=== PATIENT | female | born 1945 | race Caucasian/White ===

== ENCOUNTER 2017-02-01 21:42 | Observation (INO) | payer MEDICARE ==
[~2017-02-01] VITALS: Ht 162.6 cm; Wt 99.5 kg
[~2017-02-01 21:42] MED LIST: ACET1TAB42 PO; AZIT250T4 PO; BENZ100C8 PO; BISO10TA PO; CALC500O PO; CHOL200047 PO; CYAN500 PO; HYDR-4003 PO; HYDR10TA12 PO; HYDR25TA4 PO; Ketoconazole TOP; LEVO100T6 PO; LEVO500T16 PO; MTH4T PO; OMEP20CA11 PO; ONDA-54 PO; POTA20TA16 PO
[2017-02-01 22:13] VITALS: BP 116/60; PULSE 88; RESP 24; O2SAT 95
--- NOTE | 2017-02-01 22:28 | ED.REPORT ---
HPI-Neurologic Deficit Date of Service Feb 01, 2017 ED Provider: Ernesto Gautam DO Pt is a 71 y.o. female with a hx of metastatic breast cancer on chemotherapy, and CHF who presents to the ED via EMS with altered mental status onset 1 hour prior to arrival lasting approximately 15 minutes. Per granddaughter she found pt not moving with her eyes closed speaking "gibberish". The pt does not remember this incident. Pt's other family note that the pt seemed more fatigued than normal today. Per EMS upon their arrival the pt appeared pale and confused , they administered 500 NS en route. She received chemotherapy earlier today. Nursing Notes Stated Complaint: DECREASED LOC Chief Complaint: General Complaint Nursing Notes Reviewed: Yes Allergies: Coded Allergies: furosemide (Verified Allergy, Severe, DRAMATIC HYPOTENSION - RESULTING IN ICU ADMISSION, 02/01/17) hypotension which was severe enough that it caused an admission to ICU shrimp (Verified Allergy, Unknown, Hives, 02/07/16) enoxaparin (Verified Adverse Reaction, Severe, BLEED, 02/07/16) warfarin (Verified Adverse Reaction, Severe, BLEED, 02/07/16) Scheduled Bisoprolol Fumarate (Bisoprolol Fumarate) 10 Mg Tablet 10 MG PO QPM Calcium Carbonate (Tums) 500 Mg Tab.chew 1,000 MG PO BIDWM Cholecalciferol (Vitamin D3) (Vitamin D3) 2,000 Unit Capsule 4,000 UNIT PO DAILY Hydrochlorothiazide (Hydrochlorothiazide) 50 Mg Tablet 50 MG PO QAM Hydrocortisone (Hydrocortisone) 10 Mg Tablet 10 MG PO BID Levothyroxine (Levothyroxine) 100 Mcg Tablet 100 MCG PO QAM Omeprazole (Omeprazole) 20 Mg Capsule.dr 20 MG PO QAM Potassium Chloride (Potassium Chloride) 10 Meq Tab.er.prt 20 MEQ PO DAILY TAKE WITH FOOD Scheduled PRN Acetaminophen (Acetaminophen) 325 Mg Tablet 650 MG PO Q4H PRN PRN For Fever Hydrocodone-Acetaminophen 5-325 mg (Hydrocodone-Acetaminophen 5-325 mg) 1 Each Tablet 0.5-1 TABLET PO Q4H PRN PRN For Cough General Time Seen by Provider: 22:28 Chief Complaint Mental status change Hx Obtained From: Patient, Other family... (Granddaughter) Arrived By: Ambulance Sudden in Onset?: Yes Onset Occurred: 1 - 4 hours ago Symptom Duration: 1 - 15 minutes Severity: Current: No pain currently Severity: Maximum: No pain Risk Factors NIH Stroke Scale Level of Consciousness: Alert and responsive (0) Ask Month & Age: Both questions right (0) Open/Close Eyes/Hand Mortuary Operations Manager: Performs both tasks (0) Horizontal EO Movements: None (0) Visual Ramsey: No visual loss (0) Facial Palsy: Normal symmetry (0) Right Arm Motor Drift (10s): No drift 10 sec (0) Left Arm Motor Drift (10s): No drift 10 sec (0) Right Leg Motor Drift (5s): No drift 5 sec (0) Left Leg Motor Drift (5s): No drift 5 sec (0) Limb Ataxia FNF/Heel-Espinoza: No ataxia (0) Sensation (Arms/Legs/Face): No sensory loss (0) Language Aphasia: No aphasia, normal (0) Dysarthria: No dysarthria, normal (0) Extinction/Inattention: No exctinct/inattent (0) NIHSS Score: 0 Time NIHSS Performed: 22:35 Date NIHSS Performed: Feb 01, 2017 Past Medical History Past Medical History Metastatic breast cancer on chemotherapy, reportedly stable (in clinical remission since January 2015) CHF secondary to her Herceptin/chemo therapy History of upper extremity DVT on November 2013, initially treated with anticoagulation resulting in a large intramuscular hematoma coring prolonged hospital admission Hypercholesterolemia Hypothyroidism Pneumonia Reports: Cancer, Congestive heart failure, Hypertension Reports: Atrial fibrillation Past Surgical History Bilateral hip replacements Right knee arthroplasty D and C Port placement Family History Noncontributory Smoking History Never Smoker Social History Drug Use: Denies drug use Other Social History: Good social support, Ambulatory Status Independent Review of Systems Aphasia Constitutional: Reports: Fatigue, Denies: Chills, Fever GI: Denies: Diarrhea, Nausea, Vomiting Neurologic: Reports: Change LOC, Confusion Psychiatric: Reports: Change mental status Complete sys rev & neg: except as marked. Physical Exam Initial Vital Signs Vital Signs (First) Date Time Temp Pulse Resp B/P Pulse Ox O2 Delivery O2 Flow Rate FiO2 02/01/17 22:13 36.9 88 24 116/60 95 Room Air Initial VS: Reviewed Abdomen / GI: No distention Extremities: Vascular intact, Neuro intact Skin: Warm, Dry, No cyanosis Psychiatric: Mood/affect normal, Behavior normal, Normal thought content General/Constitutional: Awake, Alert, No acute distress, Well appearing, Well developed, Well hydrated, Well nourished, Cooperative, Not toxic appearing Head / Eyes: Atraumatic, Normocephalic, PERRL, EOMI Respiratory / Chest: Atraumatic, Breath sounds NL, Breath sounds = bilat, No respiratory distress Cardiovascular: Heart rate NL, Peripheral circulation NL Heart Rate / Rhythm: Positive: Irreg irregular rhythm Neurologic: Oriented X3, Speech NL, No motor deficits, No sensory deficits, CN II - XII intact Interpretation & Diagnostics Lab Results Interpretation Result Diagram: 02/02/17 0510 02/02/17 0510 Test 02/01/17 22:15 02/01/17 22:30 02/01/17 22:31 Hold Purple Top Tube Received (Received) Hold Blue Top Tube Received (Received) Hold Red Top Tube Received (Received) Hold [place] Top Tube Received (Received) Urine Color Yellow (YELLOW) Urine Appearance Clear (CLEAR,HAZY) Urine pH 6.5 (5.0-8.0) Urine Specific [place] 1.010 (1.003-1.035) Urine Protein Negativemg/dL (NEG,TRACE) Urine Glucose (UA) Negativemg/dL (NEGATIVE) Urine Ketones Tracemg/dL (NEGATIVE) Urine Occult Blood Negative (NEGATIVE) Urine Nitrite Negative (NEGATIVE) Urine Bilirubin Small (NEGATIVE) Urine Ictotest Positive (Negative) Urine Urobilinogen Normalmg/dL (NORMAL) Urine Leukocyte Esterase Small (NEGATIVE) Urine RBC 3-10/hpf (0-2) Urine WBC 11-50/hpf (0-5) Urine Epithelial Cells Occasional/hpf (NONE-MOD) Urine Crystals None seen (NONE SEEN) Urine Bacteria None/hpf (NONE-FEW) Urine Hyaline Casts Occasional/lpf (NONE) Urine Granular Casts None seen (NONE SEEN) Urine Waxy Casts None seen (NONE SEEN) Urine Red Blood Cell Casts None seen (NONE SEEN) Urine White Blood Cell Casts None seen (NONE SEEN) Urine Mucus Present (None Seen) Urine Trichomonas None seen (NONE SEEN) Urine Yeast None (NONE SEEN) Urine Culture Reflexed Indicated Prothrombin Time 10.8sec (8.1-12.5) Prothromb Time International Ratio 1.01ratio Troponin T 0.010ug/L (0.0-0.011) Hold Zhang Top Tube Received (Received) ECG Interpretation Time: 22:43 Interpreted by: ED physician Normal ECG Interpretation: Normal rate (85) Rhythm / Conduction: Atrial fibrillation CT Head Interpretation CONCLUSION: Chronic ischemic changes. Bilateral subdural hygromas. Radiologist: Jong Chen MD Re-Eval/Medical Decision Med Decision/Clinical Course 8-year-old female A. fib and no anticoagulation and had a brief spell of expressive aphasia. Symptoms consistent with a TIA. NIH stroke score was [address] scan did not show anything acute. She will be admitted for further stroke workup. Will begin aspirin therapy. Source of Hx: Old records Re-Evaluation/Progress : Time of Eval: 22:39 Re-Evaluation/Progress Note: Physical exam and NIH performed. Discussed plan for admit, pt and family understand and agree with plan. Consultation : Referral / Consult Name: Johnnie Francois MD Consulted With: Hospitalist Call Returned at: 23:54 Pattern Clerk: Will see patient, Agrees with eval, Agrees with plan, Accepts admit Note: Discussed pt condition, accepts admit Counseled Regarding: Diagnosis, Lab results, Need for follow-up, When/why to return to ED Discharge & Departure Shift Change Sign-Out Response to Therapy: Improved Impression: Primary Impression: TIA (transient ischemic attack) Transient cerebral ischemia type: unspecified Qualified Code: G45.9 - Transient cerebral ischemic attack, unspecified Disposition: ADMITTED TO HOSPITAL Discharge Condition All VS Reviewed: Yes Condition: Improved Referrals: Caleb Irby MD (PCP) Homero Attestation Portions of this note were transcribed by Ariel Joshua. I, Dr. Gautam personally performed the history, physical exam and medical decision-making; I reviewed and confirmed the accuracy of the information in the transcribed note. Signed by : Homero Godinez, 02/01/17 and [id number]. copies to: Caleb Irby MD, Todd P DO Feb 01, 2017 22:28 ARIEL JOSHUA Feb 01, 2017 22:39 3.2mEq/L (3.5-5.2) Chloride Level 96mEq/L (97-108) Carbon Dioxide Level 22mmol/L (18-29) Blood Urea Nitrogen 17mg/dL (8-27) Creatinine 0.98mg/dL (0.57-1.00) Estimat Glomerular Filtration Rate 80mL/min (>59) Glucose Level 97mg/dL (60-99) Calcium Level 8.9mg/dL (8.5-10.1) Magnesium Level 1.5mg/dL (1.6-2.6) Total Bilirubin 2.9mg/dL (0.0-1.2) Aspartate Amino Transf (AST/SGOT) 119U/L (0-50) Alanine Aminotransferase (ALT/SGPT) 73U/L (0-32) Alkaline Phosphatase 123U/L (25-165) Troponin T 0.010ug/L (0.0-0.011) Total Protein 7.9g/dL (6.4-8.4) Albumin 2.8g/dL (3.4-5.0) Hold Zhang Top Tube Received (Received) ECG Interpretation Time: 22:43 Interpreted by: ED physician Normal ECG Interpretation: Normal rate (85) Rhythm / Conduction: Atrial fibrillation CT Head Interpretation CONCLUSION: Chronic ischemic changes. Bilateral subdural hygromas. Radiologist: Jong Chen MD Re-Eval/Medical Decision Source of Hx: Old records Re-Evaluation/Progress : Time of Eval: 22:39 Re-Evaluation/Progress Note: Physical exam and NIH performed. Discussed plan for admit, pt and family understand and agree with plan. Consultation : Referral / Consult Name: Johnnie Francois MD Consulted With: Hospitalist Call Returned at: 23:54 Pattern Clerk: Will see patient, Agrees with eval, Agrees with plan, Accepts admit Note: Discussed pt condition, accepts admit Counseled Regarding: Diagnosis, Lab results, Need for follow-up, When/why to return to ED Discharge & Departure Impression: Primary Impression: TIA (transient ischemic attack) Disposition: ADMITTED TO HOSPITAL Discharge Condition All VS Reviewed: Yes Condition: Improved Referrals: Caleb Irby MD (PCP) Homero Attestation Portions of this note were transcribed by Ariel Joshua. I, Dr. Gautam personally performed the history, physical exam and medical decision-making; I reviewed and confirmed the accuracy of the information in the transcribed note. Signed by : Homero Godinez, 02/01/17 and [id number]. copies to: Caleb Irby MD, Todd P DO Feb 01, 2017 22:28 ARIEL JOSHUA Feb 01, 2017 22:39
[2017-02-01 22:50] LABS: BASOPHILS % (AUTO) 0.4 % (0-3); EOSINOPHILS % (AUTO) 3.3 % (0-5); MONOCYTES % (AUTO) 9.8 % (4-12); Mean Corpuscular Hemoglobin 31.4 pg (27.0-35.0); Mean Corpuscular Volume 97.2 fL (81-100); NEUTROPHILS % (AUTO) 79.4 % (40-74)
[2017-02-01 23:05] LABS: APPEARANCE,URINE CLEAR (CLEAR,HAZY); COLOR,URINE YELLOW (YELLOW); OCCULT BLOOD,URINE NEGATIVE (NEGATIVE); PH,URINE 6.5 (5.0-8.0); UROBILINOGEN,URINE NORMAL (NORMAL)
[2017-02-01 23:06] LABS: ICTOTEST,URINE POSITIVE (Negative)
[2017-02-01 23:07] LABS: INR 1.01 ratio
[2017-02-01 23:11] LABS: Platelet Count 76 bil/L (150-400); TROPONIN T 0.01 ug/L (0.0-0.011)
[2017-02-01 23:22] LABS: Magnesium 1.5 mg/dL (1.6-2.6)
[2017-02-01 23:30] VITALS: BP 101/59; PULSE 72; RESP 14; O2SAT 97
[2017-02-01] MEDS ORDERED: HYDR50TA3 PO (23:50)
[2017-02-01] MEDS ORDERED: POTA10TA38 PO (23:50)
[2017-02-01] MEDS ORDERED: ACET325T51 PO (23:51)
[2017-02-02] VITALS (9 sets, daily range): BP systolic 101–131; BP diastolic 62–84; PULSE 68–97; RESP 14–20; O2SAT 92–98
[2017-02-02] MEDS ORDERED: Ondansetron 2 mg/mL 2 mL Inj IV PRN (01:05)
[2017-02-02] MEDS ORDERED: Alum-Mag Hydrox-Simeth 30 mL Suspension PO PRN (01:05)
[2017-02-02] MEDS ORDERED: HYDROcodone-APAP 5-325 mg Tablet PO PRN (01:05)
[2017-02-02] MEDS ORDERED: Polyethylene Glycol (PEG) 17 Gm Powder PO PRN (01:05)
--- NOTE | 2017-02-02 03:49 | NUR ---
[facility] Admitted pt from ED for TIA to [facility] room 3001. Pt is alert and oriented x 4. No slurring of speech, no facial droop, equal director of intelligence, and COBB. Left arm cast noted limited ROM. CVA booklet provided, swallow screen done. Currently on Pureed Honey thick diet until speech evaluation. Denies chest pain, sob, n/v or abd discomfort. Will continue to monitor.
[2017-02-02] MEDS ORDERED: Magnesium Sulf 2 Gm/50mL Water 2 GM in IV Premix 1 EACH IV ONE (04:50)
[2017-02-02] MEDS ORDERED: 0.9% Sodium Chloride 1,000 ML IV SCH (04:50)
[2017-02-02] MEDS ORDERED: Potassium Chloride Inj 20 MEQ in Dextrose 5% 250 ML IV ONE ×2 (04:50→07:30)
--- NOTE | 2017-02-02 04:58 | PCM.HPMED ---
Subjective Date of Service Feb 02, 2017 Primary Provider: Admitting Physician: Johnnie Francois MD Primary Care Physician: Caleb Irby MD Attending Physician: Johnnie Francois MD Admit Status: From the Emergency Department, Non-Telemetry Chief Complaint: Slurred speech and decreased level of consciousness History of Present Illness: Ms. Sana Phillips is a 71-year-old female with history of metastatic breast cancer on chemotherapy, chronic Afib, recurrent pneumonia, hypothyroidism, and sleep apnea presented to the ED with altered mental status onset 1 hour prior to arrival. The patient's grand-daughter noted that the patient was not opening her eyes and had some slurred speech. She seemed sleepier than usual and did not make any sense. No facial droops noted. The incident lasted about 15 minutes before it spontaneously resolved. Per EMS report, upon their arrival the patient appeared pale and confused, and was administered 500 NS en route. By the time the patient arrived to the ED, she is back to her baseline. However , she does not recall anything about the incident nor remember talking to her grand-daughter. The last thing that she remembered was sitting in front of the TV 2 hours prior. The patient admits to generalized fatigue and dizziness, but attributes these symptoms to the chemotherapy that she received today. She reports that she generally feels weak after the chemo. Otherwise, she denies any headache, CP, SOB, weakness, numbness, tingling, fever, or chills. She uses 4L of O2 at home since 08/23 after the pneumonia, but has not noticed any increased SOB or cough. This is the first time she experienced such symptoms. In the ED, labs significant for thrombocytopenia Plt 76, Na 132, K 3.2, and Mg 1.5.UA showed moderate WBC and patient received a dose of Keflex in the ED. CT head revealed chronic ischemic changes and bilateral subdural hygromas. No acute changes noted. Patient was admitted for TIA and need stroke workup in the morning. Review of Systems: A comprehensive review of systems was conducted with the patient and found to be negative except as above in the History of Present Illness. Allergies Coded Allergies: furosemide (Verified Allergy, Severe, DRAMATIC HYPOTENSION - RESULTING IN ICU ADMISSION, 02/01/17) hypotension which was severe enough that it caused an admission to ICU shrimp (Verified Allergy, Unknown, Hives, 02/07/16) enoxaparin (Verified Adverse Reaction, Severe, BLEED, 02/07/16) warfarin (Verified Adverse Reaction, Severe, BLEED, 02/07/16) Home Medications Scheduled Bisoprolol Fumarate (Bisoprolol Fumarate) 10 Mg Tablet 10 MG PO QPM Calcium Carbonate (Calcium Carbonate) 500 Mg/5 Ml Oral.susp 1,000 MG PO BIDWM Cholecalciferol (Vitamin D3) (Vitamin D3) 2,000 Unit Capsule 2,000 UNIT PO BID Hydrochlorothiazide (Hydrochlorothiazide) 50 Mg Tablet 50 MG PO QAM Hydrocortisone (Hydrocortisone) 10 Mg Tablet 10 MG PO AM & AFTERNOON TAKES 10 MG IN AM & NOON, 5 MG IN EVENING Hydrocortisone (Hydrocortisone) 10 Mg Tablet 5 MG PO EVENING TAKES 10 MG IN AM & NOON, 5 MG IN EVENING Levothyroxine (Levothyroxine) 100 Mcg Tablet 100 MCG PO QAM Omeprazole (Omeprazole) 20 Mg Capsule.dr 20 MG PO QAM Potassium Chloride (Potassium Chloride) 10 Meq Tab.er.prt 20 MEQ PO DAILY TAKE WITH FOOD Scheduled PRN Acetaminophen (Acetaminophen) 325 Mg Tablet 650 MG PO Q4H PRN PRN For Fever Hydrocodone-Acetaminophen 5-325 mg (Hydrocodone-Acetaminophen 5-325 mg) 1 Each Tablet 0.5-1 TABLET PO Q4H PRN PRN For Cough PMH Hypothyroidism Hypertension Hyperlipidemia History of pneumonia with hospitalization History of DVT: Right internal jugular vein 2012 History of upper extremity DVT on November 2013, initially treated with anticoagulation resulting in a large intramuscular hematoma, prolonged hospital admission History of normocytic anemia secondary to blood loss 2012 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 Independent ambulatory status at baseline. Exam Vital Signs Vital Sign - Last Date Time Temp Pulse Resp B/P Pulse Ox O2 Delivery O2 Flow Rate FiO2 02/02/17 02:06 95 02/02/17 01:51 36.6 17 110/75 92 Room Air Exam General: Pale, chronically ill appearance. Nontoxic, appropriately interactive. HEENT: Normocephalic, atraumatic. External ears without defect. Pupils equal, round, and reactive to light and accommodation. Anicteric sclerae, moist conjunctivae, and no lid lag. Neck: Supple with full range of motion. No jugular venous distension. No bruits. No lymphadenopathy or thyromegaly. Cardiovascular: Irregular irregular rate and rhythm, no appreciable murmur, rub , gallop. Pulmonary: Atraumatic, Breath sounds normal and clear to auscultation bilaterally. No respiratory distress Abdomen: Bowel tones present. Soft, nontender, nondistended. No hepatosplenomegaly or masses appreciated. Extremities: No clubbing, cyanosis, or lymphedema. Bilateral mild pitting edema up to the knees, worse on the right. Right arm with cast in place. Skin: Normal temperature, turgor, and texture. Scattered erythematous papular rash on the lower extremities and posterior neck and back (patient attributes this to the chemotherapy). Neurological: No facial droops. Cranial nerves grossly intact. Normal muscle strength, tone, and bulk. Reflexes, coordination, and sensory function within normal limits. No known gait impairment. Psychiatric: Normal mood and affect. Alert and oriented to person, place, and time. Lab and Diagnostics Result Diagram: 02/01/17223002/01/172230 X-Rays, CTs and MRIs CT Head Interpretation CONCLUSION: Chronic ischemic changes. Bilateral subdural hygromas. Radiologist: Jong Chen MD 12-lead ECG Atrial fibrillation with Normal rate (85) Cardiac Echo Impressions Interpretation Summary by Dr. Seth Simms on 01/19/17: The left ventricle is normal in size. Left ventricular systolic function is low normal. The ejection fraction is estimated to be 50-55%.There has been no significant change since the previous study. The right ventricle is normal in size and function. Assessment & Plan 71-year-old female with history of metastatic breast cancer on chemotherapy, chronic Afib, recurrent pneumonia, hypothyroidism, and sleep apnea presented to the ED with altered mental status and slurred speech onset 1 hour prior to arrival. 1. Possible transient ischemic attack, present prior to admission, resolved. - No stroke or acute intracranial process noted on CT head. - Risk of subsequent stroke per ABCD2 score is 3 (age>60, speech impair w/o weakness, and duration 15min): low risk of stroke at 48 hours. - Will check carotid U/S and doppler in the AM - MRI stroke protocol in the morning. Patient is claustrophobic so she will get a dose of Ativan 1mg PO prior to the MRI. - Check lipid panel - Will start ASA 81mg and Statin. - Given patient's thrombocytopenia and risk of hemorrhagic conversion, will not start Plavix or anticoagulation at this point. - Continue to monitor for signs and symptoms of stroke 2. Persistent Afib, chronic, present on admission, active. - Patient is not anticoagulated. Although her CHADS score is 4, will not start anticoagulation due to history of significant bleeding with Lovenox and warfarin. - Resume Bisoprolol when BP improves. - Monitor Telemetry 3. Thrombocytopenia, chronic, stable. - Patient has platelet count as low as 11 in the past due to the cancer/ chemotherapy. - Might consider stopping the baby ASA if her platelet continue to drop. - Continue to monitor CBC 4. Electrolyte abnormalities, present on admission, active. - Hypovolemic hyponatremia, acute: IVF with NS at 100mls/hr. - Hypokalemia, acute: replete and continue to monitor - Hypomagnesemia, acute: replete and continue to monitor. 5. Acute UTI, present on admission, active. - UA positive for WBC. Urine and blood cultures pending. - Patient is asymptomatic and has no signs of sepsis. - Patient received a dose of Keflex PO in the ED. - Will change to Nitrofurantoin 100mg BID for 5 days. Follow up with urine culture for sensitivity. - Continue to monitor vital signs. 6. History of CHF secondary to Herceptin/chemo therapy, stable. - Closely monitored by oncology. Last Echo in 01/2017 showed no significant change. Left ventricular systolic function is low normal. The ejection fraction is estimated to be 50-55%. - No sign of CHF exacerbation on exam. Consider stopping IVF if appears fluid overload. - Strict I/O and daily weight. 7. 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 On Chemotherapy. Active. - Followed as outpatient by Dr. Ayala. - Transaminitis is worse. Avoid APAP if possible. Will continue to monitor. 8. Hypertension, chronic, stable. - BP appears to be low and patient is symptomatic for hypotension. - Will hold home hydrochlorothiazide and Bisoprolol. - IVF as above. 9. Hypothyroidism, chronic, presume stable. - Continue home levothyroxine 10. Hx of recurrent DVT, POA, chronic - Patient at high risk for DVT recurrence in the settings of breast cancer, stage IV - Enoxaparin, warfarin all cause significant bleeding. - DVT prophylaxis with pneumatic pump Med rec: need to be done by day team CODE STATUS: FULL code. Patient Status: Patient is admitted under observation status with expected length of stay less than 2 midnights due to severity of presenting symptoms and risk of adverse event. Pain Evaluation: Adequate Pain Control GI Prophylaxis: H2 alvaro VTE Prophylaxis Indicated: Contraindicated (ongoing stroke workup) Resuscitation Status: CPR: Attempt Resuscitation Attending Statement The patient was seen and examined together with Dr. Tejeda on 02/01 and I agree with the history, exam and plan as outlined in the note above. copies to: Caleb Irby MD; Ang Ayala Ngochanh H DO Feb 02, 2017 04:58 Johnnie Francois MD Feb 02, 2017 06:42
[2017-02-02] MEDS ORDERED: 0.9% Sodium Chloride 250 ML ONE (05:19)
[2017-02-02 05:54] LABS: BASOPHILS % (AUTO) 0.8 % (0-3); EOSINOPHILS % (AUTO) 3.8 % (0-5); MONOCYTES % (AUTO) 16.1 % (4-12); Mean Corpuscular Hemoglobin 31.2 pg (27.0-35.0); Mean Corpuscular Volume 95.6 fL (81-100); Platelet Count 67 bil/L (150-400)
[2017-02-02] MEDS ORDERED: HYDROmorphone 0.5 mg/0.5 mL iSecure Syringe IVPUSH PRN (06:00)
[2017-02-02] MEDS ORDERED: Potassium Chloride 20 mEq SR Tablet PO ONE ×3 (06:05→10:30)
[2017-02-02 06:23] LABS: Magnesium 1.5 mg/dL (1.6-2.6)
[2017-02-02] MEDS ORDERED: Magnesium Sulf 4 Gm/100 mL H2O 4 GM in IV Premix 1 EACH IV ONE (07:17)
[2017-02-02] MEDS ORDERED: LORazepam 1 mg Tablet PO ONE (08:00)
--- NOTE | 2017-02-02 08:14 | DRSVH ---
PROCEDURE: CT BRAIN (TPA) ([id number]) INDICATIONS: confusion, decreased LOC TECHNIQUE: Noncontrast 4.5 mm thick angled axial sections acquired from the foramen magnum to the vertex, with c oronal reformats. COMPARISON: [facility], MR, MR BRAIN W&WO CON, 07/10/2015, 11:37. [facility] , MR, BRAIN W&W/O CONTRAST, 07/10/2014, 10:36. [facility], MR, BRAIN W&W/O CONTRAST, 08/05, 16:29. FINDINGS: Image quality: Excellent. CSF spaces: Basal cisterns are patent. Bilateral frontal low density subdural fluid collections comp atible with subdural hygromas. The ventricles are symmetric in size and shape. Brain: No intracranial bleeds or masses. There is mild to moderate cerebral volume loss for age, wi th resultant ventricular and sulcal prominence. There are mild periventricular and deep white matter chronic small vessel ischemic changes. There is intracranial internal carotid artery atherosclerosi s. Skull and face: Calvarium and visualized facial bones appear intact, without suspicious lesions. Sinuses: Visualized sinuses and mastoids are clear. IMPRESSION: 1. Bilateral frontal low density subdural fluid collections compatible with subdural hygromas. 2. Cerebral volume loss and chronic microvascular ischemic changes. This study fulfills neurological imaging criteria for inclusion or exclusion of acute stroke therapie s based on available published neurological guidelines. Dictated by: Rekha Nuñez M.D. on 02/02/2017 at 8:06 Approved by: Rekha Nuñez M.D. on 02/02/2017 at 8:13
[2017-02-02] MEDS ORDERED: LORazepam 1 mg Tablet PO PRN (08:45)
--- NOTE | 2017-02-02 09:13 | DRSVH ---
PROCEDURE: X-RAY CHEST ONE VIEW, PORTABLE ([id number]) INDICATIONS: SHORTNESS OF BREATH TECHNIQUE: One view of the chest was acquired. COMPARISON: [facility], CT, CT CHEST ABD PELVIS W CON, 01/27/2017, 10:12. [facility], CR, XR CHEST 1VW (PORTABLE), 10/30/2016, 10:59. FINDINGS: Surgical changes and devices: None. Lungs and pleura: No pleural effusions or pneumothorax. Interstitium is prominent unchanged there i s chronic elevation of the posterior right hemidiaphragm. Mediastinum: Mediastinal contours appear normal. Heart size is normal. Bones and chest wall: No suspicious bony lesions. Overlying soft tissues appear unremarkable. IMPRESSION: Chronic right hemidiaphragm eventration. No acute cardiopulmonary disease. Dictated by: Koby LUCAS Interpreted: Rekha Nuñez MD on 02/02/2017 at 9:12 Transcribed by: SHAHNAZ on 02/02/2017 at 9:13 Approved by: Rekha Nuñez M.D. on 02/02/2017 at 10:54
[2017-02-02] MEDS: Nitrofurantoin Monohyd-Macrocryst 100 mg Capsule PO SCH ×2 (10:59→20:44)
[2017-02-02] MEDS ORDERED: BISOPROLOL FUMARATE 10 MG PO SCH (11:05)
--- NOTE | 2017-02-02 11:19 | DRSVH ---
PROCEDURE: MRI STROKE PROTOCOL ([id number]) Pre- and post-contrast brain MRI, non-contrast brain MR angiogram, pre- and postcontrast neck MR arlene ogram INDICATIONS: TIA, slurred speech TECHNIQUE: Brain: Noncontrast axial T1 spin echo, axial T2 fast spin echo, sagittal and axial FLAIR, coronal T2 fast spin echo, axial gradient echo, axial diffusion and ADC through the brain. After the administr ation of contrast, axial 3D VIBE of the cranial vasculature and brain. Brain MRA: Non-contrast 3-D time of flight MR angiogram, with multiple gladxlo-kgvqbdmuu-urotkehztm (MIP) reformats performed. Neck MRA: Axial and sagittal TruFISP through the neck. Coronal dynamic MR angiogram during administ ration of contrast in the arterial and venous phases, with 3-dimenstional dqfxpnj-zrjcjnece-xjtqrnuea n (MIP) reformats constructed from subtraction images. COMPARISON: [facility], CT, CT ANGIO CHEST PE, 10/28/2016, 18:58. [facility] l, MR, BRAIN W&W/O CONTRAST, 07/10/2014, 10:36. [facility], MR, MR BRAIN W&WO CON, 015, 11:37. [facility], CT, BRAIN (TPA), 02/01/2017, 21:58. FINDINGS: Image quality: Excellent. BRAIN: CSF spaces: There are moderate-sized bilateral subdural fluid collections. These demonstrate slightly increased signal intensity on T1 images and moderately increased signal intensity on T2 images. Florentin tionally, there is a subtle focus of increased signal intensity on the T1 images in the left frontal region suggesting the presence of a small subacute or acute superimposed subdural hemorrhage (series 15, image 12). Ventricles are symmetric and normal in size. Brain: An ill-defined focus of enhancement is present within the medial aspect of the right occipital lobe which measures approximately 1.0 x 1.4 cm in the axial plane (series 3, image 72). Similarly, a n ill-defined focus of enhancement is present more superiorly within the right occipital lobe which m easures 0.5 x 0.8 cm in the axial plane (series 3, image 81). These findings are suspicious for enhan cing intracranial metastases. Susceptibility artifact is associated with the medial occipital lesion suspicious for hemorrhagic transformation. Additionally, increased T2 signal is associated with the m edial occipital lesion suggesting vasogenic edema. Cameron-white matter interface is normal. Diffusion weighted images show no acute ischemic insults. Brainstem appears normal. Normal intravascular flow voids are present. Skull and face: Calvarial marrow signal is normal. Orbits appear normal. Sinuses: Sinuses and mastoids are clear. BRAIN MR ANGIOGRAM: Anterior circulation: Intracranial internal carotid arteries are normal in size and enhancement. The A1 segment of the right anterior cerebral artery is absent. The anterior cerebral arteries otherwise demonstrate symmetric course and enhancement. The flow within the middle cerebral arteries is normal and symmetric. The anterior communicating artery is seen. No stenoses, occlusions, or aneurysms. Posterior circulation: The visualized portions of the vertebral arteries demonstrate normal caliber, and join to form a normal appearing basilar artery. The left posterior cerebral artery demonstrates normal course and caliber. There is absence of the right posterior communicating artery and persisten t right circulation. No stenoses, occlusions, or aneurysms. NECK MR ANGIOGRAM: Carotids: Great vessels demonstrate a conventional anatomy as they arise from the aortic arch. The o rigin of the right common carotid artery is poorly characterized. The origin of the left common carot id artery is grossly patent, but is not well visualized. The more superior portions of both common ca rotid arteries are normal. The bifurcation regions appear normal bilaterally. The internal carotid arteries demonstrate normal course and caliber. Posterior circulation: The origins of the vertebral arteries are poorly characterized but appear delroy ssly patent. More superior portions of both vertebral arteries demonstrate normal course and caliber, and join to form a normal appearing basilar artery. Miscellaneous: Subclavian arteries appear patent. Pre-contrast images through the neck show no soft tissue abnormalities. IMPRESSION: BRAIN MRI: 1. Moderate-sized bilateral subdural fluid collections which overall have a chronic appearance. Howev er, a small focus of acute versus subacute hemorrhage is suspected within the left frontal region as described above. 2. 2 enhancing foci within the right occipital lobe suspicious for intracranial metastasis. Susceptib ility artifact is present within the posterior medial enhancing focus suspicious for hemorrhagic hernandez sformation. This finding was discussed with Dr. Nolan at 10:55 AM on 02/02/17. 3. No findings to suggest acute infarct. BRAIN MR ANGIOGRAM: 1. Absence of the right A1 segment of the anterior cerebral artery. 2. Absence of the right posterior communicating artery and persistent circulation. NECK MR ANGIOGRAM: 1. No stenosis, occlusion, or aneurysm. However, visualization of the origins of the vertebral and ca rotid arteries is limited. The estimate of stenosis included in the report of the imaging study was calculated using the NASCET method Dictated by: Chanda Augustin M.D. on 02/02/2017 at 10:42 Approved by: Chanda Augustin M.D. on 02/02/2017 at 11:18
--- NOTE | 2017-02-02 11:23 | NUR ---
Evaluation completed. Please go to "Notes" then click on "Assessments and Notes" (bottom left corner of screen). Then select appropriate discipline tab on top of screen.
--- NOTE | 2017-02-02 11:26 | NUR ---
Social Work - Initial Assessment/Readiness for Discharge Data: Pt is a 71 y/o female admitted on 02/02/17 for TIA UTI per H&P. Insurance is Medicare and AARP supplemental and PCP is Caleb Irby MD. EMR reviewed. Readmit risk score is not available. ALVARADO met with pt and Daryl [phone] at bedside to discuss discharge planning. ALVARADO role explained. Pt is alert and oriented x3. Pt resides in a mobile home with , granddaughter, and granddaughter's baby. Unit has 5 steps to enter. Pt remains independent with ADLs, uses a cane, walker, or wheelchair, and does not drive. Pt has no HH or SNF history. Pt states she has completed DPOA/Advance Directive. SW requested that the hospital be provided with a copy. Pt has no fdc care or VA benefits. Per MD at morning rounds pt likely to be discharged tomorrow pending Echo and MRI. Pt's family to provide transport damir eat discharge. No needs anticipated. ALVARADO provided phone number and plan on white board. SW will continue to follow. Assessment: Pt who resides at home with family and is independent at baseline. Plan: Likely to discharge home tomorrow via POV with no needs. Echo and MRI pending. SW will continue to follow. ALM Dye Addendum: 02/02/17 at 1138 by MARLEN FRYE SS Amended: Links added.
[2017-02-02] MEDS: Hydrocortisone 10 mg Tablet PO SCH ×2 (13:57→19:32)
--- NOTE | 2017-02-02 14:13 | PCM.PNMED ---
Subjective Date of Service Feb 02, 2017 Subjective Sana reports she feels better this morning. She reports she has a frontal headache that has been chronic. She denies any fevers, nausea, vomiting, shortness of breath, or chest pain. She reports since her chemotherapy session yesterday, she has been more fatigued, but is feeling improved this morning. She did not take her evening medications yesterday, prior to the episode. She only remembers feeling tired prior to her slurred speech episode, and does not fully remember the details of last night. She states she was at her baseline health prior to yesterday. Exam Vital Signs Vital Sign - Last Date Time Temp Pulse Resp B/P Pulse Ox O2 Delivery O2 Flow Rate FiO2 02/02/17 11:19 36.6 97 20 120/81 96 Room Air 02/02/17 05:51 2.00 Exam General: Well-developed elderly female who appears in no acute distress, cooperative, interactive HEENT: Normocephalic, atraumatic. External ears without defect. Pupils equal, round, and reactive to light and accommodation. Anicteric sclerae, moist conjunctivae, and no lid lag. Neck: Supple with full range of motion. No jugular venous distension. No bruits. No lymphadenopathy or thyromegaly. Cardiovascular: Irregular irregular rate and rhythm, no appreciable murmur, rub , gallop. Pulmonary: Atraumatic, Breath sounds normal and clear to auscultation bilaterally. No respiratory distress Abdomen: Bowel tones present. Soft, nontender, nondistended. No hepatosplenomegaly or masses appreciated. Extremities: No clubbing, cyanosis. Bilateral mild pitting edema up to the knees , worse on the right. Left arm with full cast in place Skin: Normal temperature, turgor, and texture. Scattered erythematous papular rash on the lower extremities and posterior neck and back (patient attributes this to the chemotherapy). Neurological: No facial droops. Cranial nerves grossly intact. Normal muscle strength, tone, and bulk. Reflexes, coordination, and sensory function within normal limits. No known gait impairment. Psychiatric: Normal mood and affect. Alert and oriented to person, place, and time. IVs and Medications Medications Reviewed: Medications were reviewed in detail Lab and Diagnostics Result Diagram: 02/02/17 0510 02/02/17 0510 X-Rays, CTs and MRIs CT Head Interpretation CONCLUSION: Chronic ischemic changes. Bilateral subdural hygromas. Radiologist: Jong Chen MD MR stroke protocol IMPRESSION: BRAIN MRI: 1. Moderate-sized bilateral subdural fluid collections which overall have a chronic appearance. However, a small focus of acute versus subacute hemorrhage is suspected within the left frontal region as described above. 2. 2 enhancing foci within the right occipital lobe suspicious for intracranial metastasis. Susceptibility artifact is present within the posterior medial enhancing focus suspicious for hemorrhagic transformation. This finding was discussed with Dr. Nolan at 10:55 AM on 02/02/17. 3. No findings to suggest acute infarct. BRAIN MR ANGIOGRAM: 1. Absence of the right A1 segment of the anterior cerebral artery. 2. Absence of the right posterior communicating artery and persistent circulation. NECK MR ANGIOGRAM: 1. No stenosis, occlusion, or aneurysm. However, visualization of the origins of the vertebral and carotid arteries is limited. 12-lead ECG Atrial fibrillation with Normal rate (85) Cardiac Echo Impressions Interpretation Summary by Dr. Seth Simms on 01/19/17: The left ventricle is normal in size. Left ventricular systolic function is low normal. The ejection fraction is estimated to be 50-55%.There has been no significant change since the previous study. The right ventricle is normal in size and function. Assessment & Plan 71-year-old female with history of metastatic breast cancer on chemotherapy, chronic Afib, recurrent pneumonia, hypothyroidism, and sleep apnea presented to the ED with altered mental status and slurred speech onset 1 hour prior to arrival. 1. Acute Right Occipital Lobe lesions with hemorrhagic transformation in the setting of metastatic breast cancer, POA. - No stroke or acute intracranial process noted on initial CT of brain. Subsequent MR stroke protocol noted the lesions which are likely metastatic, further details as above - LDL was 98 - We will hold off on any type of anticoagulation or antiplatelet therapy due to patient's bleeding risk - Patient's symptoms have resolved, but we will continue to monitor closely for any deterioration with the hemorrhagic transformation - This is been relayed to Dr. Ayala, patient's oncologist, will await further recommendations 2. Persistent Afib, chronic, present on admission, active. - Patient is not anticoagulated. Although her CHADS score is 4, will not start anticoagulation due to history of significant bleeding with Lovenox and warfarin. - Resume Bisoprolol - Monitor on Telemetry 3. Thrombocytopenia, chronic, stable. - Patient has platelet count as low as 11 in the past due to the cancer/ chemotherapy. - Likely side effect of chemotherapy, we will continue to monitor 4. Electrolyte abnormalities, present on admission, active. - Hypovolemic hyponatremia, acute: IVF discontinued, adequate PO intake - Hypokalemia, acute: repleted with oral Potassium due to IV potassium being too caustic for her - Hypomagnesemia, acute: repleted this morning with 2 grams of mag IV, will continue to monitor. 5. Acute UTI, present on admission, active. - UA positive for WBC. Urine and blood cultures pending. - Patient is asymptomatic and has no signs of sepsis. - Patient received a dose of Keflex PO in the ED. - Will change to Nitrofurantoin 100mg BID for 5 days. Follow up with urine culture for sensitivity. - Continue to monitor vital signs. 6. History of CHF secondary to Herceptin/chemo therapy, stable. - Closely monitored by oncology. Last Echo in 01/2017 showed no significant change. Left ventricular systolic function is low normal. The ejection fraction is estimated to be 50-55%. - No sign of CHF exacerbation on exam. - Strict I/O and daily weight. 7. 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 On Chemotherapy. POA, Active. - Followed as outpatient by Dr. Ayala. - Transaminitis likely secondary to chemotherapy. Avoid APAP if possible. Will continue to monitor. 8. Hypertension, chronic, stable. - BP appears to be low and patient is symptomatic for hypotension. - Stable 9. Hypothyroidism, chronic, presume stable. - Continue home levothyroxine 10. Hx of recurrent DVT, POA, chronic - Patient at high risk for DVT recurrence in the settings of breast cancer, stage IV - Enoxaparin, warfarin all caused significant bleeding in the past - DVT prophylaxis with pneumatic pump CODE STATUS: FULL code. Dispo: Likely discharge tomorrow if medically stable and safe discharge plan in place with Dr. Ayala. Pain Evaluation: Adequate Pain Control GI Prophylaxis: H2 alvaro Resuscitation Status: CPR: Attempt Resuscitation Stroke Anti-thrombotic Day 2 Antithrombotic Contraindicate: Medical contraindication (brain hemorrhage) Attending Statement The patient was seen and examined independently on 02/01/2017 and case discussed with Dr. Nolan , I agree with the history, exam and plan as outlined in the note above. Humble Nolan DO Feb 02, 2017 14:13 Neil Vale MD Feb 02, 2017 18:41
[2017-02-02] MEDS ORDERED: CALC500T9 PO (14:19)
--- NOTE | 2017-02-02 15:22 | NUR ---
Home medication Pt has home medication in drawer: Bisoprolol Fumarate. Medication was sent to pharmacy for re-labeling and MD order place to ok pt taking home RX.
--- NOTE | 2017-02-02 16:59 | NUR ---
Case Management: ASHVIN explained to patient and her granddaughter Carin at 1550, all questions answered. Signed original placed in chart, copy given to patient. Medicare Self-Administered Drug info also provided. Mary Lopez RN
[2017-02-02] MEDS ORDERED: BISOPROLOL 10 MG PO SCH (21:00)
[2017-02-03 00:50] VITALS: BP 109/75; PULSE 86; RESP 16; O2SAT 97
[2017-02-03 05:35] VITALS: BP 133/67; PULSE 89; RESP 18; O2SAT 94
--- NOTE | 2017-02-03 06:44 | NUR ---
Noc activity Pt denies chest pain, sob, n/v or abd discomfort. VSS and pt has been afebrile overnight. HS meds administered as scheduled. Intentional hourly rounding done and pt has slept most of the night.
[2017-02-03 07:04] LABS: BASOPHILS % (AUTO) 0.2 % (0-3); EOSINOPHILS % (AUTO) 2.2 % (0-5); MONOCYTES % (AUTO) 16.1 % (4-12); Mean Corpuscular Hemoglobin 31.8 pg (27.0-35.0); Mean Corpuscular Volume 96.5 fL (81-100); NEUTROPHILS % (AUTO) 71.5 % (40-74); Platelet Count 68 bil/L (150-400)
[2017-02-03] MEDS ORDERED: Potassium Chloride 20 mEq SR Tablet PO SCH (08:00)
[2017-02-03] MEDS: Nitrofurantoin Monohyd-Macrocryst 100 mg Capsule PO SCH (08:58)
[2017-02-03] MEDS: Hydrocortisone 10 mg Tablet PO SCH (08:59)
[2017-02-03 10:03] VITALS: BP 120/80; PULSE 89; RESP 18; O2SAT 95
[2017-02-03 10:04] VITALS: PULSE 92
[2017-02-03 14:16] VITALS: BP 128/73; PULSE 90; RESP 20; O2SAT 96
--- NOTE | 2017-02-03 15:13 | PCM.DIMED ---
Humble Nolan DO 02/03/17 1513: Discharge Instructions Date of Service Feb 03, 2017 Dates of Hospitalization Feb 02, 2017 at 00:43 Discharge Diagnosis Discharge Diagnosis 1. Likely TIA 2. Persistent Afib, chronic 3. Thrombocytopenia, chronic, stable. 4. Electrolyte abnormalities - Hypovolemic hyponatremia, acute -resolved - Hypokalemia, acute: resolved - Hypomagnesemia, acute: resolved 5. Asymptomatic Bacteriuria 6. History of CHF secondary to Herceptin/chemo therapy, stable. 7. 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 On Chemotherapy 8. Essential Hypertension, chronic, 9. Hypothyroidism, chronic 10. Hx of recurrent DVT 11. Likely Subacute Left subdural hematoma Medication Instructions Please continue taking your medications as instructed. Please do not take any blood thinners or NSAIDs unless you discuss this with your doctor. Diet Heart Healthy Activity No restrictions Call your provider Fever or Chills, Shortness of breath, Bleeding, Chest pain, Vomitting, Excessive diarrhea, Weakness (unilateral) Patient Instructions You were admitted for altered mental status and slurred speech. We did brain imaging that showed a new hematoma and possible small brain bleed, but did not show any new metastasis. We will recommend you avoid any blood thinning products or NSAID products such as Ibuprofen, Naproxen, or Aspirin for now or until you talk with your doctor. Your symptoms have improved and your blood work is stable so we will discharge you home today. Please follow up with Dr. Ayala within 1-2 weeks Please follow up with your PCP within 1 week. Follow-up Provider: Caleb Irby MD Follow-up with PCP in: 1 week Provider: Ang Ayala DO Follow-up in: 2 weeks Neil Vale MD 02/03/17 1549: Discharge Instructions Attending's Statement The patient was seen and examined independently on 02/03/2017 and case discussed with Dr. Nolan , I agree with the discharge instructions as outlined in the note above. Humble Nolan DO Feb 03, 2017 15:13 Neil Vale MD Feb 03, 2017 15:49
[2017-02-03] MEDS ORDERED: ATOR20TA PO (15:15)
--- NOTE | 2017-02-03 16:11 | NUR ---
Social Work: Discharge Data: Pt is on day 1 of hospitalization. EMR reviewed. D/C orders are in. No d/c planning needs. Assessment: Pt who is independent at baseline. Plan: Pt will d/c home via POV today. No d/c planning needs. 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 LAM Thompson
--- NOTE | 2017-02-03 16:35 | NUR ---
Discharge Nursing Note; Patient was discharged to home at 1625. Her IV was removed intact. All of patients discharge information was reviewed with her and her questions were answered to her satisfaction. Patient was brought to the hospital lobby by nursing staff member and she was driven home by her daughter. Patients home medication was returned to her from the med drawer.
--- NOTE | 2017-02-03 20:21 | PCM.DC.MED ---
Discharge Summary Date of Service Feb 03, 2017 Dates of Hospitalization Date of Hospital Admission Feb 02, 2017 at 00:43 Date of Discharge: Feb 03, 2017 Providers: Admitting Physician: Johnnie Francois MD Primary Care Physician: Caleb Irby MD Attending Physician: Johnnie Francois MD Diagnosis at Time of Discharge Diagnosis at Time of Discharge 1. Likely TIA 2. Persistent Afib, chronic 3. Thrombocytopenia, chronic, stable. 4. Electrolyte abnormalities - Hypovolemic hyponatremia, acute -resolved - Hypokalemia, acute: resolved - Hypomagnesemia, acute: resolved 5. Asymptomatic Bacteriuria 6. History of CHF secondary to Herceptin/chemo therapy, stable. 7. 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 On Chemotherapy 8. Essential Hypertension, chronic, 9. Hypothyroidism, chronic 10. Hx of recurrent DVT 11. Likely Subacute Left subdural hematoma Procedures XRay, CTs & MRIs CT Head Interpretation CONCLUSION: Chronic ischemic changes. Bilateral subdural hygromas. Radiologist: Jong Chen MD MR stroke protocol IMPRESSION: BRAIN MRI: 1. Moderate-sized bilateral subdural fluid collections which overall have a chronic appearance. However, a small focus of acute versus subacute hemorrhage is suspected within the left frontal region as described above. 2. 2 enhancing foci within the right occipital lobe suspicious for intracranial metastasis. Susceptibility artifact is present within the posterior medial enhancing focus suspicious for hemorrhagic transformation. This finding was discussed with Dr. Nolan at 10:55 AM on 02/02/17. 3. No findings to suggest acute infarct. BRAIN MR ANGIOGRAM: 1. Absence of the right A1 segment of the anterior cerebral artery. 2. Absence of the right posterior communicating artery and persistent circulation. NECK MR ANGIOGRAM: 1. No stenosis, occlusion, or aneurysm. However, visualization of the origins of the vertebral and carotid arteries is limited. ADDENDUM: COMPARISON: MR [facility], MR BRAIN W&WO CON, 01/27/2016, 11:38. Please note, the current study is compared with the prior MRI of the brain with [facility]. The enhancing lesions described in the current study within the right occipital lobe have decreased in size when compared with the prior study. Additionally, there is a marked decrease in the surrounding vasogenic edema consistent with response to therapy. Susceptibility artifact within the posterior medial right occipital lesion is new when compared with the prior study. It is unclear whether this represents acute hemorrhage or calcification in a previously treated lesion. The bilateral subdural fluid collections are new when compared with the study dated 01/27/16. As mentioned above, acute or subacute on chronic left subdural hematoma is suspected. These findings were discussed with Dr. Nolan on 02/03/17. Dictated by: Chanda Augustin M.D. on 02/03/2017 at 14:28 Approved by: Chanda Augustin M.D. on 02/03/2017 at 14:45 ECG 12 Lead Atrial fibrillation with Normal rate (85) Cardiac Echo Impression Interpretation Summary by Dr. Seth Simms on 01/19/17: The left ventricle is normal in size. Left ventricular systolic function is low normal. The ejection fraction is estimated to be 50-55%.There has been no significant change since the previous study. The right ventricle is normal in size and function. Brief History per HPI Ms. Sana Phillips is a 71-year-old female with history of metastatic breast cancer on chemotherapy, chronic Afib, recurrent pneumonia, hypothyroidism, and sleep apnea presented to the ED with altered mental status onset 1 hour prior to arrival. The patient's grand-daughter noted that the patient was not opening her eyes and had some slurred speech. She seemed sleepier than usual and did not make any sense. No facial droops noted. The incident lasted about 15 minutes before it spontaneously resolved. Per EMS report, upon their arrival the patient appeared pale and confused, and was administered 500 NS en route. By the time the patient arrived to the ED, she is back to her baseline. However , she does not recall anything about the incident nor remember talking to her grand-daughter. The last thing that she remembered was sitting in front of the TV 2 hours prior. The patient admits to generalized fatigue and dizziness, but attributes these symptoms to the chemotherapy that she received today. She reports that she generally feels weak after the chemo. Otherwise, she denies any headache, CP, SOB, weakness, numbness, tingling, fever, or chills. She uses 4L of O2 at home since 08/23 after the pneumonia, but has not noticed any increased SOB or cough. This is the first time she experienced such symptoms. In the ED, labs significant for thrombocytopenia Plt 76, Na 132, K 3.2, and Mg 1.5.UA showed moderate WBC and patient received a dose of Keflex in the ED. CT head revealed chronic ischemic changes and bilateral subdural hygromas. No acute changes noted. Patient was admitted for TIA and need stroke workup in the morning. Hospital Course 71-year-old female with history of metastatic breast cancer on chemotherapy, chronic Afib, recurrent pneumonia, hypothyroidism, and sleep apnea presented to the ED with altered mental status and slurred speech onset 1 hour prior to arrival. She was admitted for CVA workup. She had an echocardiogram that was reassuring. Her MR Stroke Protocol after further review only showed new left frontal hematoma, but the 2 occipital lesions were old. There was a question of whether there was hemorrhage transformation of those lesions or just calcifications. We were cautious and the decision was not to initiate any other antiplatelet therapy due to bleeding risk. Her symptoms rapidly resolved overnight and she remained very stable. After discussing with her oncologist and rads/onc, she was discharged home in stable condition with follow up planned. 1. Brief altered mental state due to Likely TIA, POA. - No stroke or acute intracranial process noted on initial CT of brain. Subsequent MR stroke protocol after further review only revealed new left frontal hematoma, likely from her previous fall. - LDL was 98 - We will hold off on any type of anticoagulation or antiplatelet therapy due to patient's bleeding risk - Patient's symptoms have resolved, but we will continue to monitor closely for any deterioration with the hemorrhagic transformation - This is been relayed to Dr. Ayala, patient's oncologist -Patient's symptoms resolved rapidly and she continues to be stable 2. Persistent Afib, chronic, present on admission, active. - Patient is not anticoagulated. Although her CHADS score is 4, will not start anticoagulation due to history of significant bleeding with Lovenox and warfarin. - Resume Bisoprolol - stable 3. Thrombocytopenia, chronic, stable. - Patient has platelet count as low as 11 in the past due to the cancer/ chemotherapy. - Likely side effect of chemotherapy, 4. Electrolyte abnormalities, present on admission, active. - Hypovolemic hyponatremia, acute:Resolved - Hypokalemia, acute: repleted with oral Potassium due to IV potassium being too caustic for her. resolved. - Hypomagnesemia, acute: repleted this morning with 2 grams of mag IV, will continue to monitor. resolved. 5. Acute UTI, present on admission, active. - UA positive for WBC. Urine and blood cultures pending. - Patient is asymptomatic and has no signs of sepsis. - Patient received a dose of Keflex PO in the ED. - Culture grew MUG, we stopped tx on discharge 6. History of CHF secondary to Herceptin/chemo therapy, stable. - Closely monitored by oncology. Last Echo in 01/2017 showed no significant change. Left ventricular systolic function is low normal. The ejection fraction is estimated to be 50-55%. - No sign of CHF exacerbation on exam. - Strict I/O and daily weight. 7. 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 On Chemotherapy. POA, Active. - Followed as outpatient by Dr. Ayala. - Transaminitis likely secondary to chemotherapy. Avoid APAP if possible. Will continue to monitor. 8. Hypertension, chronic, stable. - BP appears to be low and patient is symptomatic for hypotension. - Stable 9. Hypothyroidism, chronic, presume stable. - Continue home levothyroxine 10. Hx of recurrent DVT, POA, chronic - Patient at high risk for DVT recurrence in the settings of breast cancer, stage IV - Enoxaparin, warfarin all caused significant bleeding in the past - DVT prophylaxis with pneumatic pump condition on discharge stable Exam Vital Signs (Last) Date Time Temp Pulse Resp B/P Pulse Ox O2 Delivery O2 Flow Rate FiO2 02/03/17 14:16 36.9 90 20 128/73 96 Room Air 02/03/17 00:50 3.00 Exam General: Well-developed elderly female who appears in no acute distress, cooperative, interactive HEENT: Normocephalic, atraumatic. External ears without defect. Pupils equal, round, and reactive to light and accommodation. Anicteric sclerae, moist conjunctivae, and no lid lag. Neck: Supple with full range of motion. No jugular venous distension. No bruits. No lymphadenopathy or thyromegaly. Cardiovascular: Irregular irregular rate and rhythm, no appreciable murmur, rub , gallop. Pulmonary: Atraumatic, Breath sounds normal and clear to auscultation bilaterally. No respiratory distress Abdomen: Bowel tones present. Soft, nontender, nondistended. No hepatosplenomegaly or masses appreciated. Extremities: No clubbing, cyanosis. Bilateral mild pitting edema up to the knees , worse on the right. Left arm with full cast in place Skin: Normal temperature, turgor, and texture. Scattered ecchymosis on arms and legs Neurological: No facial droops. Cranial nerves grossly intact. Normal muscle strength, tone, and bulk. Reflexes, coordination, and sensory function within normal limits. Normal but slow gait. Psychiatric: Normal mood and affect. Alert and oriented to person, place, and time. Test 02/01/17 22:15 02/01/17 22:30 02/01/17 22:31 02/02/17 05:10 Hold Purple Top Tube Received (Received) Hold Blue Top Tube Received (Received) Hold Red Top Tube Received (Received) Hold [place] Top Tube Received (Received) Urine Color Yellow (YELLOW) Urine Appearance Clear (CLEAR,HAZY) Urine pH 6.5 (5.0-8.0) Urine Specific Fleming 1.010 (1.003-1.035) Urine Protein Negativemg/dL (NEG,TRACE) Urine Glucose (UA) Negativemg/dL (NEGATIVE) Urine Ketones Tracemg/dL (NEGATIVE) Urine Occult Blood Negative (NEGATIVE) Urine Nitrite Negative (NEGATIVE) Urine Bilirubin Small (NEGATIVE) Urine Ictotest Positive (Negative) Urine Urobilinogen Normalmg/dL (NORMAL) Urine Leukocyte Esterase Small (NEGATIVE) Urine RBC 3-10/hpf (0-2) Urine WBC 11-50/hpf (0-5) Urine Epithelial Cells Occasional/hpf (NONE-MOD) Urine Crystals None seen (NONE SEEN) Urine Bacteria None/hpf (NONE-FEW) Urine Hyaline Casts Occasional/lpf (NONE) Urine Granular Casts None seen (NONE SEEN) Urine Waxy Casts None seen (NONE SEEN) Urine Red Blood Cell Casts None seen (NONE SEEN) Urine White Blood Cell Casts None seen (NONE SEEN) Urine Mucus Present (None Seen) Urine Trichomonas None seen (NONE SEEN) Urine Yeast None (NONE SEEN) Urine Culture Reflexed Indicated Prothrombin Time 10.8sec (8.1-12.5) Prothromb Time International Ratio 1.01ratio Troponin T 0.010ug/L (0.0-0.011) Hold Zhang Top Tube Received (Received) Total Bilirubin 2.9mg/dL (0.0-1.2) Aspartate Amino Transf (AST/SGOT) 108U/L (0-50) Alanine Aminotransferase (ALT/SGPT) 68U/L (0-32) Alkaline Phosphatase 122U/L (25-165) Total Protein 7.0g/dL (6.4-8.4) Albumin 2.7g/dL (3.4-5.0) Triglycerides Level 70mg/dL (0-149) Cholesterol Level 168mg/dL (100-199) LDL Cholesterol, Calculated 98.000mg/dL (0-99) VLDL Cholesterol 14.000mg/dL HDL Cholesterol 56mg/dL (>39) Cholesterol/HDL Ratio 3.00 (0.0-4.4) Thyroid Stimulating Hormone (TSH) 2.400uIU/mL (0.450-4.500) Free Thyroxine 1.46ng/dL (0.82-1.77) Test 02/03/17 05:55 White Blood Count 5.1th/mm3 (3.8-10.1) Red Blood Count 3.71mil/mm3 (3.90-5.20) Hemoglobin 11.8g/dL (12.0-15.6) Hematocrit 35.8% (35.0-46.0) Mean Corpuscular Volume 96.5fL (81-100) Mean Corpuscular Hemoglobin 31.8pg (27.0-35.0) Mean Corpuscular Hemoglobin Concent 33.0% (32.0-37.0) Red Cell Distribution Width 16.7% (12.3-15.4) Platelet Count 68bil/L (150-400) Neutrophils (%) (Auto) 71.5% (40-74) Lymphocytes (%) (Auto) 9.8% (14-46) Monocytes (%) (Auto) 16.1% (4-12) Eosinophils (%) (Auto) 2.2% (0-5) Basophils (%) (Auto) 0.2% (0-3) Sodium Level 136mEq/L (134-144) Potassium Level 3.6mEq/L (3.5-5.2) Chloride Level 99mEq/L (97-108) Carbon Dioxide Level 24mmol/L (18-29) Blood Urea Nitrogen 17mg/dL (8-27) Creatinine 0.63mg/dL (0.57-1.00) Estimat Glomerular Filtration Rate 134mL/min (>59) Glucose Level 108mg/dL (60-99) Calcium Level 8.5mg/dL (8.5-10.1) Magnesium Level 2.0mg/dL (1.6-2.6) Discharge Medications Discharge Medications Atorvastatin (Lipitor) 20 Mg Tablet 20 MG PO DAILY Prescribed by: JAMIE NOLAN DO Bisoprolol Fumarate (Bisoprolol Fumarate) 10 Mg Tablet 10 MG PO QPM (Reported) Calcium Carbonate (Tums) 500 Mg Tab.chew 1,000 MG PO BIDWM (Reported) Cholecalciferol (Vitamin D3) (Vitamin D3) 2,000 Unit Capsule 4,000 UNIT PO DAILY (Reported) Hydrochlorothiazide (Hydrochlorothiazide) 50 Mg Tablet 50 MG PO QAM (Reported) Hydrocortisone (Hydrocortisone) 10 Mg Tablet 10 MG PO BID (Reported) Levothyroxine (Levothyroxine) 100 Mcg Tablet 100 MCG PO QAM (Reported) Omeprazole (Omeprazole) 20 Mg Capsule.dr 20 MG PO QAM (Reported) Potassium Chloride (Potassium Chloride) 10 Meq Tab.er.prt 20 MEQ PO DAILY ( Reported) TAKE WITH FOOD As needed Acetaminophen (Acetaminophen) 325 Mg Tablet 650 MG PO Q4H PRN PRN For Fever ( Reported) Hydrocodone-Acetaminophen 5-325 mg (Hydrocodone-Acetaminophen 5-325 mg) 1 Each Tablet 0.5-1 TABLET PO Q4H PRN PRN For Cough Prescribed by: MORIAH HE MD Additional med instructions Please continue taking your medications as instructed. Please do not take any blood thinners or NSAIDs unless you discuss this with your doctor. Followup Plan Disposition: Home Discharge Diet: Heart Healthy Discharge Activity: No restrictions Patient Instructions You were admitted for altered mental status and slurred speech. We did brain imaging that showed a new hematoma and possible small brain bleed, but did not show any new metastasis. We will recommend you avoid any blood thinning products or NSAID products such as Ibuprofen, Naproxen, or Aspirin for now or until you talk with your doctor. Your symptoms have improved and your blood work is stable so we will discharge you home today. Please follow up with Dr. Ayala within 1-2 weeks Please follow up with your PCP within 1 week. Follow-up Provider: Caleb Irby MD Follow-up with PCP in: 1 week Provider: Ang Ayala DO Follow-up in: 2 weeks Attending Statement The patient was seen and examined independently on 02/03/2017 and case discussed with Dr. Nolan , I agree with the discharge summary as outlined in the note above. copies to: Caelb Irby MD; Ang Ayala Hong D DO Feb 03, 2017 20:21 Neil Vale MD Feb 04, 2017 06:58
== END 2017-02-03 16:30 | disposition home or self-care (01) ==
LOC: EDBD 21:42 → EDUNIT# 21:42 → SED 21:42 → MPC 02-02 00:43
PROVIDERS: ADMIT Hospitalist; ATTEND Hospitalist
DX: R41.82 Altered mental status, unspecified (principal); I48.2 Chronic atrial fibrillation; D69.6 Thrombocytopenia, unspecified; E87.8 Other disorders of electrolyte and fluid balance, not elsewhere classified; N39.0 Urinary tract infection, site not specified; I50.9 Heart failure, unspecified; I10 Essential (primary) hypertension; E03.9 Hypothyroidism, unspecified; G47.33 Obstructive sleep apnea (adult) (pediatric); E78.5 Hyperlipidemia, unspecified; E78.00 Pure hypercholesterolemia, unspecified; Z85.3 Personal history of malignant neoplasm of breast; Z92.21 Personal history of antineoplastic chemotherapy; Z88.8 Allergy status to other drugs, medicaments and biological substances; Z91.013 Allergy to seafood; Z86.718 Personal history of other venous thrombosis and embolism; Z96.643 Presence of artificial hip joint, bilateral; Z96.651 Presence of right artificial knee joint
CPT/HCPCS: 36415; 70450; 70549; 70553; 71010; 80048; 80053; 80061; 81000; 82948; 83735; 84439; 84443; 84484; 85025; 85610; 87040; 87086; 87088; 92610; 93005; 96374; 96375; 99285; A9585; G0378; G8996; G8997; G8998; J2405; J3480; J7030; J7050

== ENCOUNTER 2017-02-13 13:42 | Emergency (ER) | payer MEDICARE ==
[~2017-02-13] VITALS: Ht 167.6 cm; Wt 100.0 kg
[~2017-02-13 13:42] MED LIST changes: -ACET1TAB42 PO; +ACET325T51 PO; +ATOR20TA PO; -AZIT250T4 PO; -BENZ100C8 PO; -CALC500O PO; +CALC500T9 PO; -CYAN500 PO; -HYDR25TA4 PO; +HYDR50TA3 PO; -Ketoconazole TOP; -LEVO500T16 PO; -MTH4T PO; -ONDA-54 PO; +POTA10TA38 PO; -POTA20TA16 PO
[2017-02-13 13:45] VITALS: BP 147/97; PULSE 95; RESP 18; O2SAT 94
--- NOTE | 2017-02-13 13:55 | ED.REPORT ---
HPI-Stroke / CVA Feb 13, 2017 ED Provider: Dr. Khalil Pt is a 71 y/o female w/ a hx of stage IV breast CA with mets to the brain, CHF , HTN, A-fib, hyperlipidemia, presenting to the ED with her granddaughter due to confusion onset 10:25 today. The patient was admitted to [facility] on February 01 for what was diagnosed as a TIA. MRI during that visit showed no signs of acute infarct. Since discharge she has been very mildly confused at baseline. She has also been taking Vicodin for her headaches. Today at 10:25, the patient suddenly began experiencing decreased responsiveness and significantly increased confusion in the sense that she answers all questions with "OK" or "who am I". Family notes that she has been using all extremities equally and has no signs of vision change or obvious pain. She is usually quite independent and lives at home with her family. Of note, the patient does not take Aspirin or anticoagulants because she experienced a large intramuscular hematoma in 2013 after being placed on Warfarin for a PE. Personal history is unable to be obtained from the patient secondary to AMS. Code status per granddaughter who is the power of finance attorney: FULL CODE Nursing Notes Stated Complaint: POSS STROKE/CHEST PAIN Chief Complaint: Stroke Symptoms Nursing Notes Reviewed: Yes Allergies: Coded Allergies: furosemide (Verified Allergy, Severe, DRAMATIC HYPOTENSION - RESULTING IN ICU ADMISSION, 02/01/17) hypotension which was severe enough that it caused an admission to ICU shrimp (Verified Allergy, Unknown, Hives, 02/07/16) enoxaparin (Verified Adverse Reaction, Severe, BLEED, 02/07/16) warfarin (Verified Adverse Reaction, Severe, BLEED, 02/07/16) Scheduled Atorvastatin (Lipitor) 20 Mg Tablet 20 MG PO DAILY Bisoprolol Fumarate (Bisoprolol Fumarate) 10 Mg Tablet 10 MG PO QPM (Reported) Calcium Carbonate (Tums) 500 Mg Tab.chew 1,000 MG PO BIDWM (Reported) Cholecalciferol (Vitamin D3) (Vitamin D3) 2,000 Unit Capsule 4,000 UNIT PO DAILY (Reported) Hydrochlorothiazide (Hydrochlorothiazide) 50 Mg Tablet 50 MG PO QAM (Reported) Hydrocortisone (Hydrocortisone) 10 Mg Tablet 10 MG PO BID (Reported) Levothyroxine (Levothyroxine) 100 Mcg Tablet 100 MCG PO QAM (Reported) Omeprazole (Omeprazole) 20 Mg Capsule.dr 20 MG PO QAM (Reported) Potassium Chloride (Potassium Chloride) 10 Meq Tab.er.prt 20 MEQ PO DAILY ( Reported) TAKE WITH FOOD Scheduled PRN Acetaminophen (Acetaminophen) 325 Mg Tablet 650 MG PO Q4H PRN PRN For Fever ( Reported) Hydrocodone-Acetaminophen 5-325 mg (Hydrocodone-Acetaminophen 5-325 mg) 1 Each Tablet 0.5-1 TABLET PO Q4H PRN PRN For Cough General Time Seen by Provider: 13:45 Chief Complaint Confusion Hx Obtained From: Patient, Other family... (Granddaughter) Unable to Obtain Hx: Patient condition Arrived By: Wheelchair Time last known well 10:25 Sudden in Onset?: Yes Symptom Duration: Since onset Progression Since Onset: Unchanged Severity: Current: No pain currently Severity: Maximum: No pain Risk Factors )( TPA Administration/Criteria Stroke Thrombolytic Therapy : TPA Considered: Yes TPA Administered Intravenously: No, not indicated (hemorrhagic) NIH Stroke Scale Level of Consciousness: Not alert, arousable (1) Ask Month & Age: 0 questions right (2) Open/Close Eyes/Hand Guard Range: Performs both tasks (0) Horizontal EO Movements: None (0) Visual Ramsey: No visual loss (0) Facial Palsy: Normal symmetry (0) Right Arm Motor Drift (10s): No drift 10 sec (0) Left Arm Motor Drift (10s): No drift 10 sec (0) Right Leg Motor Drift (5s): No drift 5 sec (0) Left Leg Motor Drift (5s): No drift 5 sec (0) Limb Ataxia FNF/Heel-Espinoza: Ataxia in 2 limbs (2) Sensation (Arms/Legs/Face): No sensory loss (0) Language Aphasia: Severe, fragmented (2) Dysarthria: Slurring intelligible (1) Extinction/Inattention: Inatt spatial/person (1) NIHSS Score: 9 Time NIHSS Performed: 14:07 Date NIHSS Performed: Feb 13, 2017 Past Medical History Past Medical History Metastatic breast cancer on chemotherapy, reportedly stable (in clinical remission since January 2015) CHF secondary to her Herceptin/chemo therapy History of upper extremity DVT on November 2013, initially treated with anticoagulation resulting in a large intramuscular hematoma coring prolonged hospital admission Hypercholesterolemia Hypothyroidism Hx Pneumonia Reports: Cancer, Congestive heart failure, Hypertension Reports: Atrial fibrillation Past Surgical History Bilateral hip replacements Right knee arthroplasty D and C Port placement Family History Noncontributory Smoking History Former Smoker Social History Granddaughter is power of finance attorney and indicates the patient is FULL CODE status Drug Use: Denies drug use Other Social History: Good social support, Ambulatory Status Independent Review of Systems Unable to Obtain ROS Patient condition Neurologic: Reports: Confusion Physical Exam Initial Vital Signs Vital Signs (First) Date Time Temp Pulse Resp B/P Pulse Ox O2 Delivery O2 Flow Rate FiO2 02/13/17 13:45 37.5 95 18 147/97 94 Room Air Initial VS: Reviewed, Vital signs normal ENT: Mucous membranes moist, Conjunctiva normal, No scleral icterus Abdomen / GI: Soft, Non-tender, No guarding, No rebound, No distention Extremities: Vascular intact, Neuro intact, No swelling, No tenderness Skin: Warm, Dry, No cyanosis Psychiatric: Mood/affect normal, Behavior normal General/Constitutional: Awake, No acute distress, Cooperative Chronically ill-appearing Head / Eyes: Atraumatic, Normocephalic, PERRL Neck: Atraumatic, Supple, No meningismus, Full range of motion Respiratory / Chest: Atraumatic, Breath sounds NL, Breath sounds = bilat, No respiratory distress, No rales, No rhonchi, No wheezing, No retractions, No stridor, No chest tenderness, No chest wall deformity, No crepitus Cardiovascular: Heart rate NL, Heart sounds NL, No gallop, No murmurs, No rubs , Cap refill not delayed, Peripheral circulation NL Heart Rate / Rhythm: Positive: Irreg irregular rhythm Neurologic: No motor deficits, No sensory deficits See NIH stroke scale = 9 Interpretation & Diagnostics Lab Results Interpretation Result Diagram: 02/13/17 1457 02/13/17 1457 Test 02/13/17 14:57 White Blood Count 6.5th/mm3 (3.8-10.1) Red Blood Count 3.93mil/mm3 (3.90-5.20) Hemoglobin 12.2g/dL (12.0-15.6) Hematocrit 36.7% (35.0-46.0) Mean Corpuscular Volume 93.4fL (81-100) Mean Corpuscular Hemoglobin 31.0pg (27.0-35.0) Mean Corpuscular Hemoglobin Concent 33.2% (32.0-37.0) Red Cell Distribution Width 16.1% (12.3-15.4) Platelet Count 124bil/L (150-400) Neutrophils (%) (Auto) 68.4% (40-74) Lymphocytes (%) (Auto) 12.4% (14-46) Monocytes (%) (Auto) 17.2% (4-12) Eosinophils (%) (Auto) 1.2% (0-5) Basophils (%) (Auto) 0.3% (0-3) Prothrombin Time 10.7sec (8.1-12.5) Prothromb Time International Ratio 1.00ratio Activated Partial Thromboplast Time 29.9sec (22.8-33.0) Sodium Level 133mEq/L (134-144) Potassium Level 3.5mEq/L (3.5-5.2) Chloride Level 92mEq/L (97-108) Carbon Dioxide Level 27mmol/L (18-29) Blood Urea Nitrogen 15mg/dL (8-27) Creatinine 0.67mg/dL (0.57-1.00) Estimat Glomerular Filtration Rate 125mL/min (>59) Glucose Level 116mg/dL (60-99) Calcium Level 9.6mg/dL (8.5-10.1) Total Bilirubin 2.8mg/dL (0.0-1.2) Aspartate Amino Transf (AST/SGOT) 63U/L (0-50) Alanine Aminotransferase (ALT/SGPT) 25U/L (0-32) Alkaline Phosphatase 165U/L (25-165) Total Protein 9.1g/dL (6.4-8.4) Albumin 3.1g/dL (3.4-5.0) Hold Zhang Top Tube Received (Received) ECG Interpretation ECG Interpretation: Atrial fibrillation rate 96 No change from EKG taken 02/01/17 Time: 15:33 Interpreted by: ED physician Normal ECG Interpretation: No acute ischemic changes CT Head Interpretation FINDINGS: Image quality: Excellent. CSF spaces: Basal cisterns are patent. No extra-axial fluid collections. The ventricles are symmetric in size and shape. Brain: The previously noted hygromas that had acute components since a previous CT of 02/01/17 bilaterally. There is mild mass effect on the convexities bilaterally. No midline shift is seen. No evidence of herniation is seen. The hemorrhagic components are most prominent in the frontal and subfrontal areas bilaterally and they are acute in this area. There focal areas of acute change house attendant the convexities as well.. There is cerebral volume loss for age, with resultant ventricular and sulcal prominence. There are periventricular and deep white matter chronic small vessel ischemic changes. There is a small area of encephalomalacia consistent with ischemic infarct in the right occipital lobe. There is intracranial internal carotid artery atherosclerosis. Skull and face: Calvarium and visualized facial bones appear intact, without suspicious lesions. Sinuses: Visualized sinuses and mastoids are clear. IMPRESSION: Bilateral acute hemorrhagic changes within the pre-existing hygromas involving the frontal temporal and anterior parietal lobes. No midline shift or herniation is seen. Small old ischemic infarct involving the right parietal lobe. Dictated by: Marc Marshall M.D. on 02/13/2017 at 14:07 Approved by: Marc Marshall M.D. on 02/13/2017 at 14:15 ER was called. Study: Head CT no contrast Interpretation / Wet Read by: Interpret - Radiologist, Discussed w radiologist Comparison with Prior Study: Changed Re-Eval/Medical Decision Med Decision/Clinical Course 71-year-old female with multiple comorbidities including metastatic breast cancer currently under chemoradiation treatment with Dr. Ayala presents with confusion and decreased verbalization. She has a complicated history of metastasis to the brain and bilateral subdural hematomas that were seen at a recent hospitalization for TIA last week. She was functioning very well, at her baseline up until around 10:30 today when she started saying who am I and okay only. She does respond to commands and her NIH score is 9 as listed above. Her head CT shows acute bleeding in the bilateral parietal and frontal lobe. He was a very difficult IV stick and required multiple attempts by IV therapy and we finally resorted to a PICC line. I spoke with [facility] ER physician and they accept transfer. Case was also discussed with [facility] neurology by the transfer center. Patient has been stable with her vitals here. Her platelets are 124. Her INR is normal. She is not on blood thinners. She has not had any seizure but a small amount of nausea requiring Zofran. Family notes that she is a full code and her very concerned that she get a full treatment possible. They stated this is the patient wishes also. She will be transferred by ALS to [facility]. Ambulance weight is approximately 45 minutes which is frustrating but I do not feel that given her stable status and her multiple comorbidities that flight is indicated. Re-Evaluation/Progress : Time of Eval: 14:05 Re-Evaluation/Progress Note: Informed family of imaging findings. They would like full treatment at this time and tell me that she is FULL CODE. Will arrange transfer to a site that can provide neurosurgery. Consultation : Call Returned at: 14:32 Note: Case discussed with Dr. Han of neurologist at [facility]. Will review images. Counseled Regarding: Diagnosis, Lab results, Need for transfer Patient Discharge & Departure Impression: Primary Impression: Hemorrhagic stroke Additional Impressions: Breast cancer metastasized to brain Laterality: unspecified laterality Qualified Code: C50.919 - Malignant neoplasm of unspecified site of unspecified female breast Atrial fibrillation Atrial fibrillation type: chronic Qualified Code: I48.2 - Chronic atrial fibrillation Disposition: Transfer, Acute Care Facility Transfer Requested at: 14:51 Receiving Hospital: [facility] - Dr. Maykel Mattson Transfer Accepted: Yes Transfer Accepted at: 14:51 Transfer Reason: Higher level of care Spoke with: Emergency physician Patient Status: Stable Patient Informed: Yes Discharge Condition All VS Reviewed: Yes Condition: Stable Referrals: Caleb Irby MD (PCP) Crit Care Except Billable Proc Time Spent: 75-104 minutes Services Performed: Patient management by me, Time spent at bedside, Reviewing test results, Reviewing imaging, Discussing patient care, Documentation in record, Time with fam/surrogate Scribe Attestation Portions of this note were transcribed by Ki Arguelles. I, Dr. Khalil personally performed the history, physical exam and medical decision-making; I reviewed and confirmed the accuracy of the information in the transcribed note. Signed by Homero Corbin, 02/13/17 - 1400 copies to: Caleb Irby MD, Gary R DO Feb 13, 2017 13:55 KI ARGUELLES Feb 13, 2017 14:03
--- NOTE | 2017-02-13 14:17 | DRSVH ---
PROCEDURE: CT BRAIN WITHOUT CONTRAST ([id number]) INDICATIONS: stroke TECHNIQUE: Noncontrast 4.5 mm thick angled axial sections acquired from the foramen magnum to the vertex, with c oronal reformats. COMPARISON: None. FINDINGS: Image quality: Excellent. CSF spaces: Basal cisterns are patent. No extra-axial fluid collections. The ventricles are symmet megan in size and shape. Brain: The previously noted hygromas that had acute components since a previous CT of 02/01/17 bilater ally. There is mild mass effect on the convexities bilaterally. No midline shift is seen. No evidence of herniation is seen. The hemorrhagic components are most prominent in the frontal and subfrontal a reas bilaterally and they are acute in this area. There focal areas of acute roving changer the convexit ies as well.. There is cerebral volume loss for age, with resultant ventricular and sulcal prominenc e. There are periventricular and deep white matter chronic small vessel ischemic changes. There is a small area of encephalomalacia consistent with ischemic infarct in the right occipital lobe. There is intracranial internal carotid artery atherosclerosis. Skull and face: Calvarium and visualized facial bones appear intact, without suspicious lesions. Sinuses: Visualized sinuses and mastoids are clear. IMPRESSION: Bilateral acute hemorrhagic changes within the pre-existing hygromas involving the fronta l temporal and anterior parietal lobes. No midline shift or herniation is seen. Small old ischemic infarct involving the right parietal lobe. Dictated by: Marc Marshall M.D. on 02/13/2017 at 14:07 Approved by: Marc Marshall M.D. on 02/13/2017 at 14:15 ER was called.
[2017-02-13 15:05] LABS: BASOPHILS % (AUTO) 0.3 % (0-3); EOSINOPHILS % (AUTO) 1.2 % (0-5); MONOCYTES % (AUTO) 17.2 % (4-12); Mean Corpuscular Volume 93.4 fL (81-100); NEUTROPHILS % (AUTO) 68.4 % (40-74); Platelet Count 124 bil/L (150-400)
[2017-02-13] MEDS ORDERED: Sodium Chloride LOK Flush 10 mL Syringe IVFLUSH PRN ×2 (15:10)
[2017-02-13 15:20] VITALS: BP 163/102; PULSE 97; RESP 21; O2SAT 93
[2017-02-13 16:39] VITALS: BP 123/93; PULSE 98; RESP 21; O2SAT 97
[2017-02-13] MEDS ORDERED: Ondansetron 2 mg/mL 2 mL Inj IVPUSH ONE (17:00)
--- NOTE | 2017-02-13 17:12 | DRSVH ---
PROCEDURE: X-RAY PICC LINE PLACEMENT BY NURSE ([id number]) INDICATIONS: difficult IV access COMPARISON: None. FINDINGS: PICC was placed by the intravenous therapy team from the left side. Fluoroscopic spot oswald m demonstrates tip of PICC in the superior vena cava at its junction with the right atrium. IMPRESSION: Tip of PICC lies within the superior vena cava at its junction with the right atrium. Dictated by: Marc Marshall M.D. on 02/13/2017 at 17:10 Approved by: Marc Marshall M.D. on 02/13/2017 at 17:11
--- NOTE | 2017-02-13 17:22 | NUR ---
Per family, the patient's left arm has been swollen for a number of months, occurring after a fall, and also after "they were digging on her to get IVs." She is wearing a brace on her L wrist and forearm. and RN aware also.
[2017-02-13 17:25] LABS: APPEARANCE,URINE CLEAR (CLEAR,HAZY); COLOR,URINE YELLOW (YELLOW); OCCULT BLOOD,URINE NEGATIVE (NEGATIVE); PH,URINE 7.5 (5.0-8.0)
[2017-02-13 17:34] VITALS: BP 123/93; PULSE 98; RESP 21; O2SAT 97
== END 2017-02-13 17:41 | disposition short-term general hospital (02) ==
LOC: SED 13:42
DX: I62.9 Nontraumatic intracranial hemorrhage, unspecified (principal); C79.31 Secondary malignant neoplasm of brain; C50.919 Malignant neoplasm of unspecified site of unspecified female breast; I48.2 Chronic atrial fibrillation; I11.0 Hypertensive heart disease with heart failure; I50.9 Heart failure, unspecified; E03.9 Hypothyroidism, unspecified; E78.5 Hyperlipidemia, unspecified; Z87.01 Personal history of pneumonia (recurrent); Z86.718 Personal history of other venous thrombosis and embolism; Z87.891 Personal history of nicotine dependence; Z79.899 Other long term (current) drug therapy; Z88.8 Allergy status to other drugs, medicaments and biological substances
CPT/HCPCS: 36415; 36569; 70450; 77001; 80053; 81000; 82948; 85025; 85610; 85730; 87086; 87088; 93005; 96374; 99291; 99292; J2405